=== PATIENT | female | born 1985 | race Caucasian/White ===

== ENCOUNTER 2019-07-07 22:09 | Emergency (ER) | payer MEDICARE, MEDICAID, SELFPAY ==
[2019-07-07 22:10] VITALS: BP 194/116; PULSE 107; RESP 18; TEMP 37.2; O2SAT 100; BMI 41.1
--- NOTE | 2019-07-07 22:10 | ECG_ITS ---
APPROVED REPORT Exam: Resting ECG HR:110 bpm ECG Measurements Heart Rate 110 AXES LA 128 P 30 QRSd 78 QRS -14 QT 382 T 21 QTc 516 <Conclusion> Sinus tachycardia Minimal voltage criteria for LVH, may be normal variant Borderline ECG Electronically signed by : Maximo Linn, 07/08/2019 06:18:06
--- NOTE | 2019-07-07 22:20 | XR_ITS ---
PROCEDURE: XR CHEST 2V Patient Age:33Y CLINICAL HISTORY: chest pain hypertension. Nonsmoker. COMPARISON: CT ANGIO CHEST from 07/07/2019 FINDINGS: PA and lateral CXR standing performed: No focal infiltrate or consolidation. Slight suboptimal inspiration on this PA chest, with diaphragm down to the anterior 4th-5th rib on right. The central vascular and lung markings are generous, upper normal prominence-this appearance suggest mild vascular engorgement likely accentuated by less than optimal inspiration.. However the heart is normal in size and the CP angles are clear with no effusions. Sallie and mediastinal structures satisfactory. The subsequent CT chest shows no discrete focal infiltrate either, only some minor areas were of what appears to be minimal atelectasis and scarring IMPRESSION: Nothing definitely acute. No focal infiltrate. Central markings upper normal, may in part reflect less than optimal inspiration.. Upper normal central vascularity but heart is normal in size and there are no effusions Dictated by: Sebastián Bolton MD 07/10/2019 08:26 Electronically signed by Sebastián Bolton MD in [place] 07/10/2019 08:26
--- NOTE | 2019-07-07 22:38 | PC.NURSE ---
Did not give ASA her, pt states she has 4 baby asa in ambulance
[2019-07-07 22:41] VITALS: BP 158/103; PULSE 116; RESP 18; O2SAT 97
[2019-07-07 22:41] LABS: Microscopic, Urine URINE MICROSCOPIC (MICROSCOPIC)
[2019-07-07 22:41] LABS: Anion Gap 13.2 mEq/L (5-15); Blood Urea Nitrogen 13 mg/dl (7-17); Calcium 9.8 mg/dl (8.4-10.2); Carbon Dioxide 25 mmol/L (22.0-30.0); Chloride 101 mmol/L (98-107); Creatinine Clearance Estimated 154 mL/min (50-200); Estimated Glomerular Filt Rate 73 ml/min (>60); GFR (African American) 88 ML/MIN (>60); Glucose 177 mg/dl (74-100); Potassium 3.2 mmoL/L (3.5-5.1); Sodium 136 mmol/L (136-145)
[2019-07-07 22:44] LABS: Appearance,Urine SL CLOUDY (Clear); Bilirubin,Urine Negative (Negative); Blood, Urine 3+ (Negative); Color,Urine YELLOW (Yellow); Glucose,Urine (UA) Negative (Negative); Ketones,Urine Negative (Negative); Leukocyte Esterase,Urine Negative (Negative); Nitrate,Urine Negative (Negative); Protein,Urine 2+ (Negative); Specific Gravity, Urine >= 1.030 (1.005-1.030); Urobilinogen,Urine 0.2 EU/dl (0.2)
[2019-07-07 22:54] LABS: Barbiturates Screen,Urine Negative ng/ml (<200)
[2019-07-07 22:54] LABS: Troponin I 0.01 ng/ml (0.00-0.034)
[2019-07-07 22:55] LABS: Amphetamine/Metha Screen,Urine Negative ng/ml (<1000); Benzodiazepines Screen,Urine Negative ng/ml (<200)
[2019-07-07 22:56] LABS: Mucus,Urine 1+ /lpf; Squamous Epithelial Cell,Urine 20-50 #/hpf (0-5); WBC,Urine Occasional #/hpf (0-3)
[2019-07-07 22:56] LABS: Cannabinoid Screen,Urine Negative ng/ml (<50)
[2019-07-07 22:57] LABS: Cocaine Screen,Urine Negative ng/ml (<300); Methadone Screen,Urine Negative ng/ml (<300); Urine Pregnancy, HCG Qual. Negative (Negative)
[2019-07-07 22:58] LABS: Opiate Screen,Urine Negative ng/ml (<300); Phencyclidine Screen,Urine Negative ng/ml (<25)
[2019-07-07 23:06] LABS: Basophils # 0.1 K/mm3 (0-0.2); Basophils % 0.8 % (0.1-2.0); Eosinophils # 0.1 K/mm3 (0.0-0.4); Eosinophils % 0.6 % (0.1-12.0); Hematocrit 44.3 % (37.0-47.0); Hemoglobin 14.8 g/dL (12.2-16.2); Lymphocytes # 2.2 K/mm3 (0.7-4.5); Lymphocytes % 22.8 % (10-50); Mean Corpuscular HGB Conc 33.5 g/dL (31.8-35.4); Mean Corpuscular Hemoglobin 30.1 pg (27.0-31.2); Mean Corpuscular Volume 89.9 fl (81-99); Mean Platelet Volume 7.8 fl (7.4-10.4); Monocytes # 0.5 K/mm3 (0.1-1.0); Monocytes % 4.7 % (1.7-9.3); Neutrophils # 6.9 K/mm3 (1.8-7.8); Neutrophils % 71.1 % (37.0-80.0); Platelet Count 406 K/mm3 (142-424); Red Blood Count 4.93 M/mm3 (4.20-5.40); Red Cell Distribution Width 14.6 % (11.5-17.5); White Blood Count 9.8 K/mm3 (4.8-10.8)
[2019-07-07 23:12] VITALS: BP 154/117; PULSE 107; RESP 18; O2SAT 97
--- NOTE | 2019-07-07 23:14 | [facility].EDCP ---
ED Disposition Clinical Impression: Atypical chest pain, Hypertensive emergency Obesity Qualifiers: Obesity type: due to excess calories Obesity classification: adult class 3 (BMI >= 40) Serious obesity comorbidity presence: with serious comorbidity Body mass index: BMI 40.0-44.9 Qualified Code(s): E66.01 - Morbid (severe) obesity due to excess calories; Z68.41 - Body mass index (BMI) 40.0-44.9, adult Disposition: Home, Self-Care Condition on Discharge: Good Instructions: DI for Atypical Chest Pain Additional Instructions: see pcp for close follow up Referrals: Provider,Referral, MD [Primary Care Provider] - - Critical Care Critical Care Time: No Attestation: On 07/07/19, the high probability of a clinically significant, sudden or life threatening deterioration of the following system(s) required my full and direct attention, intervention and personal management. The time I documented below is in addition to time spent performing reported procedures but includes the following listed in this critical care notation. Medical Decision Making - Medical Records Medical records reviewed: Yes: I reviewed the patient's medical records. - [place] Inquiry Pt receiving controlled substance: No Vital Signs: 07/07/19 22:10 07/07/19 22:41 07/07/19 23:12 Temperature 98.9 F Temperature Source Oral Pulse Rate [Right] 107 H 116 H 107 H Respiratory Rate 18 18 18 Blood Pressure [Right Arm] 194/116 H 158/103 H 154/117 H Blood Pressure Mean [Right Arm] 142 121 129 Blood Pressure Source [Right Arm] Automatic Cuff Blood Pressure Position [Right Arm] Sitting 02 Sat by Pulse Oximetry 100 97 97 Oxygen Delivery Method Room Air Room Air Room Air 07/07/19 23:36 07/08/19 00:15 07/08/19 00:55 Temperature Temperature Source Pulse Rate [Right] 104 H 101 H 103 H Respiratory Rate 18 16 18 Blood Pressure [Right Arm] 176/106 H 149/104 H 166/104 H Blood Pressure Mean [Right Arm] 129 119 124 Blood Pressure Source [Right Arm] Blood Pressure Position [Right Arm] 02 Sat by Pulse Oximetry 97 96 96 Oxygen Delivery Method Room Air Room Air Room Air 07/08/19 01:51 Temperature Temperature Source Pulse Rate [Right] 99 H Respiratory Rate 18 Blood Pressure [Right Arm] 146/87 H Blood Pressure Mean [Right Arm] 106 Blood Pressure Source [Right Arm] Blood Pressure Position [Right Arm] 02 Sat by Pulse Oximetry 95 Oxygen Delivery Method Room Air - Lab Data Lab results reviewed: Yes: I reviewed the patient's lab results. Lab Results 07/07/19 22:20: WBC 9.8, RBC 4.93, Hgb 14.8, Hct 44.3, MCV 89.9, MCH 30.1, MCHC 33.5, RDW 14.6, Plt Count 406, MPV 7.8, Neut % (Auto) 71.1, Lymph % (Auto) 22.8, [place] % (Auto) 4.7, Eos % (Auto) 0.6, Baso % (Auto) 0.8, Neut # (Auto) 6.9, Lymph # (Auto) 2.2, [place] # (Auto) 0.5, Eos # (Auto) 0.1, Baso # (Auto) 0.1 07/07/19 22:20: Sodium 136, Potassium 3.2 L, Chloride 101, Carbon Dioxide 25, Anion Gap 13.2, BUN 13, Creatinine 0.90, Estimated Creat Clear 154, Estimated GFR 73, Est GFR ( Amer) 88, Glucose 177 H, Calcium 9.8, Troponin I 0.01 07/07/19 22:37: Urine HCG, Qual Negative 07/07/19 22:37: Urine Opiates Screen Negative, Urine Methadone Screen Negative, Ur Barbituates Screen Negative, Ur Phencyclidine Scrn Negative, Ur Amphetamines Screen Negative, U Benzodiazepines Scrn Negative, Urine Cocaine Screen Negative, U Marijuana (THC) Screen Negative 07/07/19 22:38: Urine Color Yellow, Urine Appearance Sl cloudy, Urine pH 6.0, Ur Specific [place] >= 1.030, Urine Protein 2+, Urine Glucose (UA) Negative, Urine Ketones Negative, Urine Blood 3+, Urine Nitrate Negative, Urine Bilirubin Negative, Urine Urobilinogen 0.2, Ur Leukocyte Esterase Negative, Urine RBC 5-10, Urine WBC Occasional, Ur Squamous Epith Cells 20-50, Urine Mucus 1+ 07/08/19 01:29: Troponin I 0.02 Result diagrams: 07/07/19 22:20 07/07/19 22:20 Orders (Tests/Meds): ED MEDICATIONS Generic Name Dose Route Start Last Admin Trad
[2019-07-07 23:36] VITALS: BP 176/106; PULSE 104; RESP 18; O2SAT 97
--- NOTE | 2019-07-07 23:40 | CT_ITS ---
PROCEDURE: CT ANGIO CHEST Patient Age:33Y CLINCIAL INDICATION: chest pain Chest pain right arm pain hypertension. Nonsmoker COMPARISON: XR CHEST 2V from 07/07/2019 TECHNIQUE: IV Contrast: Rapid bolus IV administration 70ML OPTIRAY 350 followed by 40 mL normal saline bolus Thin section helical axial images obtained with the thickened her axial along with MIP P slab sagittal and coronal reformats. All CT scans at the facility use one or more dose reduction, viz: automated exposure control, ma/kV adjustment per patient size (including targeted exams where dose is matched to indication, i.e. head), or iterative reconstruction technique. FINDINGS: PULMONARY ARTERIES: No pulmonary embolus evident. Pulmonary arteries are well visualized and unremarkable AORTA: Appears satisfactory with no acute findings. No thoracic aortic aneurysm nor dissection evident LUNGS: No prominent findings. No mass or focal consolidation. Only very minor observations.. Left lung: Probable minor subtle scarring or atelectasis left infrahilar region along the left heart margin (axial 72 coronal 48, sagittal 61). Doubt scant early wispy infiltrate here. Right lung: Scant dependent atelectasis posteriorly with scant scarring and atelectasis at accentuating markings posteriorly axial image 47.; Also 2 tiny blebs are seen in this region as well reflecting some minor chronic lung changes. PLEURAL SPACES: No significant effusion. No evidence of pneumothorax. HEART: Unremarkable. Normal heart size. No significant pericardial effusion. Of no remarkable coronary artery calcification and limited visualized coronary arteries grossly unremarkable-. MEDIASTINAL AND HILAR STRUCTURES: No mediastinal or hilar mass evident. No dominant adenopathy . Upper normal wall thickness distal esophagus BONY STRUCTURES: No acute bony abnormalities apparent. No rib or chest wall abnormalities. A specifically right chest and right upper arm unremarkable on the CT survey. Only note mild marginal osteophytes developing T-spine reflecting minor early degenerative changes T-spine LYMPH NODES: No enlarged lymph nodes evident. UPPER ABDOMEN: Gallbladder is partially imaged but there is a 12 mm gallstone at the fundus. Suggest follow-up gallbladder ultrasound particularly if given history of chest pain and right arm pain. IMPRESSION: 1. No evidence of pulmonary embolism. Good quality study. Aorta and great vessels unremarkable as well 2. No consolidation or discrete focal pneumonia. Only suggestion scant, minor atelectasis and scarring at left infrahilar region; and at posterior aspect of superior segment RLL. Doubt early wispy infiltrate in these areas. 3. Cholelithiasis. Gallbladder only partially imaged but note over 12 mm gallstone at fundus GB.. Suggest follow-up RUQ ultrasound, particularly in view of chest and right arm pain history. Dictated by: Sebastián Bolton MD 07/08/2019 09:57 Electronically signed by Sebastián Bolton MD in [facility] 07/08/2019 09:57
[2019-07-08 00:15] VITALS: BP 149/104; PULSE 101; RESP 16; O2SAT 96
[2019-07-08 00:55] VITALS: BP 166/104; PULSE 103; RESP 18; O2SAT 96
[2019-07-08 01:51] VITALS: BP 146/87; PULSE 99; RESP 18; O2SAT 95
[2019-07-08 02:03] LABS: Troponin I 0.02 ng/ml (0.00-0.034)
[2019-07-08 02:29] VITALS: BP 136/68; PULSE 100; RESP 14; TEMP 37.2; O2SAT 95
--- NOTE | 2019-07-08 02:34 | PC.NURSE ---
Pt is discharged, her ride is approx 30 minutes away, chooses to wait in room until he arrives
== END 2019-07-08 03:09 | disposition home or self-care (01) ==
PROVIDERS: Emergency Provider Emergency Medicine
DX: R07.89 Other chest pain (principal); I16.1 Hypertensive emergency; E66.01 Morbid (severe) obesity due to excess calories; Z68.41 Body mass index [BMI] 40.0-44.9, adult; Z79.899 Other long term (current) drug therapy
CPT/HCPCS: 71046; 71275; 80048; 80305; 81001; 81025; 84484; 85025; 93005; 96365; 99284; Q9967